=== PATIENT | male | born 1950 | race Two or more races ===

== ENCOUNTER → 2024-01-27 | Emergency (ER) | payer OTHER ==
[~2024-01-27] VITALS: Ht 172.7 cm; Wt 77.1 kg
[~2024-01-27] MED LIST: 0.9 % SODIUM CHLORIDE 1,000 ML IV SCH; ARICEPT5 MG; CHILDREN'S ASPI81 MG; FAMOTIDINE/PF 20 MG/2 ML VIAL IV PUSH STA; FAMOtidine 200mg/20ml VIAL ONE; FENOFIBRATE160 MG PO; GLIMEPIRIDE4 M1 PO; IRBESARTAN300 MG PO; LIPITOR40 MG PO; METOCLOPRAMIDE HCL 5 MG/ML VIAL IV STA; METOCLOPRAMIDE HCL 5 MG/ML VIAL ONE; ONDANSETRON HCL 2 MG/ML VIAL IV STA; ONDANSETRON HCL 2 MG/ML VIAL ONE; PLAVIX75 MG; TAMS0.4C; TRULICITY4.5 MG/0.5 SQ
[2024-01-27 15:07] LABS: HEMATOCRIT 45.8 % (39.0-48.0); HEMOGLOBIN 15.4 g/dL (13-16.00); MEAN CORPUSCULAR HEMOGLOBIN 27.6 pg (27.00-32.0); MEAN CORPUSCULAR HGB CONC 33.6 g/dl (32.0-36.0); PLATELET COUNT 209 K/uL (150-450); RED BLOOD COUNT 5.59 M/uL (4.00-6.00); RED CELL DISTRIBUTION WIDTH 13.9 % (11.5-14.5)
[2024-01-27 15:27] LABS: ALBUMIN 3.3 gm/dL (3.4-5.0); BILIRUBIN TOTAL 1.14 mg/dL (0.3-1.2); BILIRUBIN,CONJUGATED 0.24 mg/dL (0.0-0.2); BILIRUBIN,UNCONJUGATED 0.9 mg/dL (0.0-0.6); CALCIUM 9.2 mg/dL (8.5-10.1); CREATININE SERUM 0.93 mg/dL (0.70-1.30); GFR 79.64; POTASSIUM 3.73 mEq/L (3.5-5.1); TOTAL PROTEIN 7.1 gm/dL (6.4-8.2)
[2024-01-27 15:36] LABS: URINE APPEARANCE Clear; URINE BILIRRUBIN Negative (NEGATIVE); URINE BLOOD Small; URINE COLOR Yellow; URINE LEUKOCYTE Negative; URINE NITRATE Negative; URINE UROBILINOGEN 0.2 E.U./dl
[2024-01-27 15:50] LABS: URINE EPITHELIAL CELLS 8.9 uL (0.0-38.8); URINE RBC 25.6 uL (0.0-20.8)
[2024-01-27 15:55] LABS: URINE GLUCOSE >=1000 MG/DL (NEGATIVE); URINE PROTEIN 100 (NEGATIVE)
== END | disposition home or self-care (01) ==
LOC: ER 13:17
PROVIDERS: General Practice
DX: K52.9 Noninfective gastroenteritis and colitis, unspecified (principal); Z86.73 Personal history of transient ischemic attack (TIA), and cerebral infarction without residual deficits; I10 Essential (primary) hypertension
CPT/HCPCS: 36415; 74176; 96365; 99284; J7030